=== PATIENT | male | born 1965 | race Asian ===

== ENCOUNTER 2017-06-19 07:45 | Emergency (ER) | payer OTHER ==
[~2017-06-19] VITALS: Ht 157.5 cm; Wt 63.5 kg
[~2017-06-19 07:45] MED LIST: HYDR-4446 PO; KEFSUS PO; LOSARTAN PO; TAMS0.4C96 PO
[2017-06-19 07:51] VITALS: BP 154/110
--- NOTE | 2017-06-19 07:57 | NUR ---
PT W/C ASSISTED TO BED 4 AT THIS TIME.
--- NOTE | 2017-06-19 07:59 | NUR ---
51M BIB SELF C/O LEFT KNEE PAIN, PRESSURE, 7/10 X YESTERDAY. 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 WILL CONTINUE TO MONITOR.
--- NOTE | 2017-06-19 08:04 | NUR ---
PT TAKEN TO XRAY VIA W/C ACCOMPANIED BY [employer] AT THIS TIME.
--- NOTE | 2017-06-19 08:14 | NUR ---
ER MD DR. REYNA EVALUATING PT AT BEDSIDE.
[2017-06-19] MEDS: KETOROLAC 60 MG/2 ML VIAL IM ONE (08:29)
--- NOTE | 2017-06-19 08:45 | NUR ---
PT EDUCATED ON USE OF CRUTCHES AND CARE OF KNEE IMMOBOLIZER WITH CORRECT RETURN DEMONSTRATION; ALL QUESTIONS ADDRESSED AT THIS TIME; PT VERBALIZED UNDERSTANDING WITH NO FURTHER QUESTIONS AT THIS TIME.
[2017-06-19 08:55] VITALS: BP 155/106
--- NOTE | 2017-06-19 08:55 | NUR ---
Patient discharged with BP 155/106; PT STATES " I FEEL FINE"; PT STATES NO HEADACHE, DIZZINESS, OR WEAKNESS AT THIS TIME; ER MD DR. REYNA NOTIFIED OF BP.Written and verbal after care instructions given and explained.Patient alert, oriented and verbalized understanding of instructions. Wheel Chair Assisted with to car. All questions addressed prior to discharge. ID band removed. Patient advised to follow up with PMD. Rx of MOTRIN 800MG TAB given. Patient educated on indication of medication including possible reaction and side effects. Opportunity to ask questions provided and answered.
== END 2017-06-19 08:55 | disposition home or self-care (01) ==
LOC: MED 07:45
DX: S86.812A Strain of other muscle(s) and tendon(s) at lower leg level, left leg, initial encounter (principal); I10 Essential (primary) hypertension; Z79.899 Other long term (current) drug therapy; X58.XXXA Exposure to other specified factors, initial encounter; Y93.89 Activity, other specified; Y92.89 Other specified places as the place of occurrence of the external cause; Y99.8 Other external cause status
CPT/HCPCS: 29505; 73562; 96372; 99284; J1885

== ENCOUNTER 2019-05-30 13:59 | Emergency (ER) | payer OTHER ==
[~2019-05-30] VITALS: Ht 157.5 cm; Wt 72.6 kg
[~2019-05-30 13:59] MED LIST changes: -HYDR-4446 PO; -KEFSUS PO; -TAMS0.4C96 PO
[2019-05-30 14:04] VITALS: BP 170/101
--- NOTE | 2019-05-30 14:35 | NUR ---
C/O LEFT FOOT PAIN STARTING TODAY, MILD SWELLING/REDNESS NOTED, +CMS TO LEFT FOOT. PT DENIES TRAUMA/INJURY. STATES HE NOTICED THE REDNESS LAST NIGHT BUT IT DIDNT START HURTING UNTIL THE MORNING.
--- NOTE | 2019-05-30 14:40 | NUR ---
DR. BAILEY AT BEDSIDE
[2019-05-30 15:07] VITALS: BP 161/94
--- NOTE | 2019-05-30 15:07 | NUR ---
Patient discharged with v/s stable. Written and verbal after care instructions given and explained. Patient verbalized understanding. Ambulatory with steady gait. All questions addressed prior to discharge. Advised to follow up with PMD.
== END 2019-05-30 15:07 | disposition home or self-care (01) ==
LOC: MED 13:59
DX: L03.116 Cellulitis of left lower limb (principal); I10 Essential (primary) hypertension; E78.00 Pure hypercholesterolemia, unspecified; Z79.899 Other long term (current) drug therapy
CPT/HCPCS: 99283

== ENCOUNTER 2020-02-21 12:13 | Emergency (ER) | payer OTHER ==
[~2020-02-21] VITALS: Ht 157.5 cm; Wt 63.5 kg
--- NOTE | 2020-02-21 12:21 | NUR ---
Patient ambulated to bed 3. RN evaluating patient at bedside. Addendum: 02/21/20 at 1227 by JEM URINE CUP HANDED TO PT FOR SAMPLE
[2020-02-21 12:23] VITALS: BP 160/99
--- NOTE | 2020-02-21 12:30 | NUR ---
54 Y/O M C/C BACK PAIN, 05/20, SHARP X 1 DAY. PER PT HX OF KIDNEY STONES, BELIEVES ITS THE STONES CAUSING THIS PROBLEM. LAST EPISODE OF KIDNEY STONES 2015. PT NKA. HX HTN,HLD,DM. RX AMLODOPINE,LOSARTAN,METFORMIN,ATORVASTATIN. NO N/V/D. SIDE RAIL X1. BS 130.
--- NOTE | 2020-02-21 12:43 | NUR ---
URINE COLLECTED AND GIVEN TO LAB
[2020-02-21] MEDS ORDERED: KETOROLAC 30 MG/ML VIAL IM ONE (12:45)
[2020-02-21 12:57] LABS: BILIRUBIN,URINE NEGATIVE (NEGATIVE); BLOOD, URINE 3+ (NEGATIVE); COLOR,URINE RED (YELLOW); LEUKOCYTE ESTERASE ,URINE TRACE (NEGATIVE); NITRITE, URINE NEGATIVE (NEGATIVE); PH,URINE 5.5 (5.0-9.0); UGLUCOSE NEGATIVE (NEGATIVE)
[2020-02-21 13:01] LABS: APPEARANCE,URINE BLOODY (CLEAR)
[2020-02-21 13:09] LABS: RBC,URINE 80-100 /HPF (0-5)
--- NOTE | 2020-02-21 13:12 | NUR ---
PT RESTING IN BED, SIDE RAIL X1
--- NOTE | 2020-02-21 13:18 | NUR ---
PT TAKEN TO CT VIA WHEELCHAIR
[2020-02-21] MEDS ORDERED: METF500T PO (13:20)
[2020-02-21] MEDS ORDERED: LOSA100T1 PO (13:20)
[2020-02-21] MEDS ORDERED: AMLO5TAB PO (13:21)
[2020-02-21] MEDS ORDERED: ATOR10TA PO (13:21)
[2020-02-21] MEDS ORDERED: NACL 0.9% 1,000 ML IV ONE (13:40)
[2020-02-21] MEDS ORDERED: TAMSULOSIN 0.4 MG CAP PO ONE (13:40)
[2020-02-21] MEDS ORDERED: cefTRIAXone 1,000 MG VIAL ONE (13:43)
--- NOTE | 2020-02-21 13:55 | NUR ---
BLOOD DRAWN AND COLLECTED GIVEN TO BRADEN DANIELLE
--- NOTE | 2020-02-21 14:03 | NUR ---
CALLED LAB, SPOKE TO SALONI TO [employer] BLOOD [facility]PC[facility].
[2020-02-21 14:15] LABS: BASOPHILS % (AUTO) 0.3 % (0.0-2.0); EOSINOPHILS # (AUTO) 0.1 K/uL (0-0.4); EOSINOPHILS % (AUTO) 0.5 % (0.0-4.0); HEMATOCRIT 40.9 % (36-52); HEMOGLOBIN 13.8 g/dL (12.0-18.0); LYMPHOCYTES # (AUTO) 1.4 K/uL (2.0-11.5); LYMPHOCYTES % (AUTO) 11.2 % (20.5-51.1); MEAN CORPUSCULAR HEMOGLOBIN 30 pg (27-31); MEAN CORPUSCULAR HGB CONC 34 g/dL (33-37); MEAN CORPUSCULAR VOLUME 87.9 fL (80-94); MONOCYTES # (AUTO) 1.3 K/uL (0.8-1.0); MONOCYTES % (AUTO) 10.5 % (1.7-9.3); NEUTROPHILS # (AUTO) 9.4 K/uL (1.8-7.7); NEUTROPHILS % (AUTO) 77.5 % (42.2-75.2); PLATELET COUNT (AUTO) 295 K/uL (140-450); RED BLOOD CELL COUNT(AUTO) 4.66 MIL/uL (4.20-6.10); RED CELL DISTRIBUTION WIDTH 13.8 % (11.6-13.7); WHITE BLOOD COUNT (AUTO) 12.1 K/uL (4.8-10.8)
[2020-02-21 14:34] LABS: ALBUMIN 4.1 g/dL (3.4-5.0); ANION GAP 13.6 (8-16); CARBON DIOXIDE 27.7 mmol/L (21-32); CREATININE 1.9 mg/dL (0.6-1.3); POTASSIUM 3.3 mmol/L (3.5-5.1); TOTAL BILIRUBIN 0.7 mg/dL (0.0-1.0)
--- NOTE | 2020-02-21 15:30 | NUR ---
SPOKE WITH PATIENT'S MOTHER AIDA, ADVISED HER THAT PATIENT WOULD BE TRANSFERRED TO [facility] FOR FURTHER TREATMENT. CONTACT PHONE #
[2020-02-21] MEDS ORDERED: MORPHINE SULFATE 4 MG/ML SYR IVP ONE (15:40)
[2020-02-21] MEDS ORDERED: POTASSIUM CHLORIDE 10 MEQ TABER PO ONE (17:55)
--- NOTE | 2020-02-21 17:55 | NUR ---
REPORT GIVEN TO DARYL FELICIANO FROM THE RECEIVING FACILITY. [facility]. PATIENT WILL BE GOING TO ROOM 422 DR. NG ADMITTING DOCTOR DX HYDRONEPHROSIS
--- NOTE | 2020-02-21 18:14 | NUR ---
[facility] at bedside for transfer to [facility].
--- NOTE | 2020-02-21 18:20 | NUR ---
[facility] UN[address] AT BEDSIDE PREPARING PATIENT TO GO TO DESTINATION
[2020-02-21 18:40] VITALS: BP 127/96
--- NOTE | 2020-02-21 18:40 | NUR ---
Patient to be transferred to [facility]. Is being transferred due to HYDRONEPHROSIS. Receiving facility has accepting physician and available space. ER physician has signed transfer form. Patient or responsible republican has agreed to transfer and signed form. Patient belongings inventoried and will be sent with patient. Copy of nursing notes, lab reports, EKG, Physicians Orders and X-rays to be sent with patient. Report called to DARYL FELICIANO at receiving facility. [facility] ambulance service has been called for transfer.
== END 2020-02-21 18:20 | disposition short-term general hospital (02) ==
LOC: MED 12:13
DX: N13.2 Hydronephrosis with renal and ureteral calculous obstruction (principal); N39.0 Urinary tract infection, site not specified; N17.9 Acute kidney failure, unspecified; E87.6 Hypokalemia; E11.9 Type 2 diabetes mellitus without complications; I10 Essential (primary) hypertension; Z79.84 Long term (current) use of oral hypoglycemic drugs; Z79.899 Other long term (current) drug therapy
CPT/HCPCS: 36415; 74176; 80053; 81001; 83605; 85025; 87040; 87086; 96365; 96372; 96375; 99285; J0696; J1885; J2270; J7030